=== PATIENT | female | born 1935 | race Caucasian/White ===

== ENCOUNTER 2018-01-31 01:42 | Inpatient (IN) | payer MEDICARE ==
[2018-01-31 03:13] LABS: #Lymphocytes 0.5 thou/uL (1.20-3.40); #Monocytes 0.4 thou/uL (0.11-0.59); #Neutrophils 4.2 thou/uL (1.40-6.50); %Basophils 0.6 % (0.0-1.0); %Eosinophils 0.4 % (0.0-10.0); %Lymphocytes 9.1 % (21.0-51.0); %Monocytes 7.1 % (0.0-10.0); %Neutrophils 82.8 % (42.0-75.0); Hemoglobin 11.2 g/dL (12.0-16.0); Mean Corpuscular HGB CONC 32.1 g/dL (32.0-36.0); Mean Corpuscular Hemoglobin 26.4 pg (27.0-31.0); Mean Corpuscular Volume 82.3 fl (81.0-99.0); Mean Platelet Volume 8.7 fL (7.4-10.4); Platelet Count 147 thou/uL (130-400); RBC Distribution Width 15.2 % (11.5-14.5); Red Blood Cell (RBC) Count 4.22 mill/uL (4.20-5.40)
[2018-01-31 03:37] LABS: CKMB 2.1 ng/mL (0-6.6); Troponin I 0.255 ng/mL (< 0.028)
[2018-01-31 03:46] LABS: ALT (SGPT) 26 U/L (8-55); AST (SGOT) 33 U/L (5-34); Albumin 3.3 g/dL (3.4-4.8); Alkaline Phosphatase 90 U/L (40-150); Anion Gap 12 mmol/L (10-20); BUN (Urea Nitrogen) 27 mg/dL (9.8-20.1); Bilirubin, Total 0.5 mg/dL (0.2-1.2); Calc. Creatinine Clearance 0 mL/min (70-130); Calcium 9.1 mg/dL (7.8-10.44); Carbon Dioxide 27 mmol/L (23-31); Chloride 105 mmol/L (98-107); Estimated GFR-MDRD 72; Glucose 180 mg/dL (83-110); Potassium 3.8 mmol/L (3.5-5.1); Protein, Total 6.3 g/dL (6.0-8.3); Sodium 140 mmol/L (136-145)
[2018-01-31] MEDS ORDERED: Aspirin 325 MG TAB ONE (04:24)
[2018-01-31] MEDS ORDERED: Piperacillin/Tazobactam 3.375 GM in Sodium Chloride 0.9% 100 ML IVPB SCH ×2 (04:30→06:45)
[2018-01-31 06:11] VITALS: BMI 19.3
[2018-01-31] MEDS ORDERED: Ondansetron ODT 4 MG TAB PO PRN (06:12)
[2018-01-31] MEDS ORDERED: Acetaminophen 325 MG TAB PO PRN (06:12)
[2018-01-31] MEDS ORDERED: Eucerin (Mineral Oil/Petrolatum,White) 30 gm Jar TOP PRN (06:12)
[2018-01-31] MEDS ORDERED: HYDROcodone/Acetaminophen 5/325 mg Tablet PO PRN (06:12)
[2018-01-31] MEDS ORDERED: Mag-Al 1200 mg/1200 mg/30 ML UDCUP PO PRN (06:12)
[2018-01-31] MEDS ORDERED: Artificial Tears 18 DROP/0.9 ML EA EYE PRN (06:12)
[2018-01-31] MEDS ORDERED: Ondansetron HCl/PF 4 MG/2 ML Vial IVP PRN (06:12)
[2018-01-31] MEDS ORDERED: Milk Of Magnesia 30 ML UDCUP PO PRN (06:12)
[2018-01-31] MEDS ORDERED: Zolpidem Tartrate 5 MG TAB PO PRN (06:12)
[2018-01-31] MEDS ORDERED: Loperamide HCl 2 MG CAP PO PRN (06:12)
[2018-01-31] MEDS ORDERED: HumaLOG 300 UNITS/3 ML VIAL SC PRN (06:12)
[2018-01-31] MEDS ORDERED: Senokot 8.6 MG TAB PO PRN (06:12)
[2018-01-31] MEDS ORDERED: hydrALAZINE 20 MG/ML VIAL SLOW IVP PRN (06:12)
[2018-01-31] MEDS ORDERED: Loratadine 10 MG TAB PO PRN (06:12)
[2018-01-31] MEDS ORDERED: Dextrose 5% in Water 1,000 ML IV PRN (06:12)
[2018-01-31] MEDS ORDERED: Sodium Chloride 0.65% Nasal 44 ML BOT EA NARE PRN (06:12)
[2018-01-31] MEDS ORDERED: Diabetic Tussin 200 MG/10 ML UDCUP PO PRN (06:12)
[2018-01-31] MEDS ORDERED: Chloraseptic Spray 180 ml Bottle PO PRN (06:12)
[2018-01-31] MEDS ORDERED: Furosemide 20 MG/2 ML VIAL SLOW IVP SCH (06:30)
--- NOTE | 2018-01-31 06:38 | HP ---
PRIMARY CARE PHYSICIAN: Dr. Anthony Moeller. REASON FOR ADMISSION: Acute hypoxic respiratory failure, pneumonia, congestive heart failure exacerb ation, demand ischemia of myocardium. HISTORY OF PRESENT ILLNESS: An 82-year-old female who lives at [facility]. She has history of con gestive heart failure. We do not have any medical record available in our hospital, so we do not kno w what type of congestive heart failure she has. At [facility], the patient has DNR order that was confirmed by ER physician after communicating with the nursing staff at [facility]. The patient was in respiratory distress. She was hypoxic and that is why paramedics were called. Pa ramedics saw her hypoxic. She required BiPAP. She was saturating only 85% on room air and she was i n respiratory distress. She was wheezing and she was having rales all over her lungs. The patient w as not able to provide any good history because she has underlying senile dementia and her cognitive status. Because of her age, she was not able to provide coherent history. REVIEW OF SYSTEMS: The patient is responding to yes or no question and mostly she says no to most of the questions, so reliability of review of system is uncertain. Please see my HPI for further detai ls. The following complete review of systems was negative, unless otherwise mentioned in the HPI or below: Constitutional: Weight loss or gain, ability to conduct usual activities. Skin: Rash, itch ing. Eyes: Double vision, pain. ENT/Mouth: Nose bleeding, neck stiffness, pain, tenderness. Card iovascular: Palpitations, dyspnea on exertion, orthopnea. Respiratory: Shortness of breath, wheezi ng, cough, hemoptysis, fever, or night sweats. Gastrointestinal: Poor appetite, abdominal pain, hea rtburn, nausea, vomiting, constipation, or diarrhea. Genitourinary: Urgency, frequency, dysuria, no cturia. Musculoskeletal: Pain, swelling. Neurologic/Psychiatric: Anxiety, depression. Allergy/Im munologic: Skin rash, bleeding tendency. Please see my HPI for pertinent positives and negatives. All other review of systems reviewed and negative except as mentioned in the HPI. Please see my HPI for further detail. ALLERGIES: No known drug allergy. CURRENT HOME MEDICATIONS: Unfortunately, snf did not send paperwork with the medication lis t and patient cannot provide the detail about her home medication, so unable to review, we will call in the morning snf and get medication list. CODE STATUS: As per our communication with nursing staff at [facility], it is confirmed that aung celis has DNR status at the sn[facility], but we do not have any official paperwork from snf an d that is why early in the morning, we will try to get paper work from snf about DNR status or I will try to reach family member to confirm her DNR status. PAST MEDICAL HISTORY: Chronic congestive heart failure, type of her congestive heart failure not kno wn; diabetes type 2, osteoarthritis, osteoporosis, compression fracture of vertebra, muscle wasting a nd atrophy oropharyngeal dysphagia, history of pneumonia. PAST SURGICAL HISTORY: The patient is not able to provide any detailed surgical history unfortunatel y because of her cognitive status. PAST PSYCHIATRIC HISTORY: Similarly, patient is not able to provide any detailed psychiatric history because of her cognitive status. FAMILY HISTORY: The patient is not able to provide any family history because of her current cogniti ve status. SOCIAL HISTORY: Only we know is that the patient lives at snf and as per report, no history of tobacco, alcohol or illicit drug abuse at the snf. EMERGENCY ROOM COURSE: Patient is given vancomycin, Zosyn, aspirin and DuoNeb therapy. The patient initially required BiPAP in the emergency room, but subsequently BiPAP was discontinued a nd still patient was maintaining saturation above 92% with oxygen. PHYSICAL EXAMINATION: VITAL SIGNS: Currently, blood pressure 174/84, pulse 86, respiratory rate 20, temperature 98.5, satu ration 97% on BiPAP, and 94% on 3 liter oxygen, weight 49.9 kilograms. GENERAL: The patient is currently in mild respiratory distress. HEENT: Head is normocephalic, atraumatic. Eyes: Pupils round, reactive to light. Extraocular musc les are intact. ENT: Moist mucous membranes. No oral lesion, no pharyngeal erythema, no exudate. NECK: Supple, no JVD, no thyromegaly, no carotid bruit, no jugular venous distention. LUNGS: Bilateral rales noted, more on the right side. Bronchial breath sounds noted on the right si de and expiratory wheezing bilaterally. CARDIAC: S1, S2 regular. Soft systolic murmur noted parasternally and no gallop, no rub. ABDOMEN: Soft, bowel sounds present, nontender, nondistended. No organomegaly, no mass, no suprapub ic tenderness. BACK: Unremarkable, no CVA tenderness. EXTREMITIES: Upper extremity, passive movement of all joints is normal. Lower extremity: No edema. Good peripheral pulsation. SKIN: Patient does have multiple age-indeterminant scattered bruises all over her skin. PSYCHIATRIC: Normal affect. NEUROLOGIC: Grossly nonfocal examination. The patient moves all 4 limbs. Motor and sensation withi n normal limit. SIGNIFICANT LABS: 1. EKG showing normal sinus rhythm, left axis deviation, LVH, left atrial enlargement. Chest x-ray showing right lower lobe pneumonia, pulmonary vascular congestion. 2. CBC: WBC 5.0, hemoglobin 11.2, platelets 147 with a left shift. BMP shows sodium 140, potassium 3.8, chloride 105, carbon dioxide 27, anion gap 12, BUN 27, creatinine 0.77, glucose 180, calcium 9. 1. Lactic acid 1.1. 3. LFT: AST 33, ALT 26, alkaline phosphatase 90, albumin 3.3. BNP 894.1, CK-MB 2.1, troponin 0.255 . ASSESSMENT AND PLAN: 1. Acute hypoxic respiratory failure likely due to congestive heart failure as well as healthcare-as sociated pneumonia. The patient will need oxygen therapy and we will maintain oxygen saturation abov e 92%. 2. FPC acquired pneumonia. Patient has right lower lobe pneumonia, underlying aspiration p neumonia is also a possibility. The patient will be given broad spectrum antibiotic therapy with van comycin and Zosyn to cover gram positive, gram negative and anaerobes. We will also consult speech t herapy for her swallowing evaluation. The patient will be given DuoNeb therapy every 6 hourly as wel l as Mucinex 600 mg twice daily. 3. Demand ischemia of myocardium. We will do serial cardiac enzymes x3 to rule out acute coronary s yndrome. 4. Acute on chronic congestive heart failure exacerbation, suspecting diastolic heart failure. We w ill obtain echocardiography. We will give her Lasix 20 mg IV b.i.d. We will monitor renal function, electrolytes and replace accordingly. 5. Anemia, normocytic, normochromic. Patient will be given multivitamin and ferrous sulfate while i n hospital. 6. Moderate protein-calorie malnutrition. The patient will be given nutritional supplementation whi le in hospital. 7. Senile dementia, Alzheimer's type. Patient will need supportive care. Patient will need PT, OT while in hospital and eventually the patient will go back to sn[facility]. 8. Deep venous thrombosis prophylaxis. Lovenox 40 mg subcu daily. 9. Gastrointestinal prophylaxis, Pepcid 20 mg p.o. b.i.d. 10. Code status as per report, the patient has DNR status, but we will confirm patient's DNR status in the morning with the family or paperwork from snf. 11. Diabetes type 2. We will continue hyperglycemia protocol treatment while in hospital with insul in as per sliding scale protocol. 12. Oropharyngeal dysphagia. We will consult speech therapy for diet modification. Disposition plan based on clinical course. We are expecting patient's stay in hospital more than 2 m idnights. Plan of care discussed with the patient in detail.
[2018-01-31 07:03] LABS: Troponin I 0.266 ng/mL (< 0.028)
[2018-01-31] MEDS: Vancomycin HCl 750 MG in Sodium Chloride 0.9% 250 ML 250 ML IVPB SCH (08:24)
[2018-01-31] MEDS: Famotidine 20 MG TAB PO SCH (08:25)
[2018-01-31] MEDS: Enoxaparin Sodium 40 MG/0.4 ML SYRINGE SC SCH (08:25)
[2018-01-31] MEDS: guaiFENesin ER 600 MG TAB PO SCH ×2 (08:26→22:17)
[2018-01-31] MEDS: Saccharomyces boulardii 250 MG CAP PO SCH (08:26)
--- NOTE | 2018-01-31 08:54 | RAD ---
TWO VIEWS CHEST: HISTORY: Shortness of breath, 82-year-old female. FINDINGS: Two AP views chest are obtained. EKG leads are seen over the chest. Ectasia and calcification of the aorta is seen. Diffuse interstitial markings seen throughout the lungs. Areas of airspace opacity are seen throughout both lungs, more prominent on the right than on the lef t compatible with chronic changes versus areas of patchy pneumonia. Correlate with followup films. IMPRESSION: Bilateral airspace opacities, worse on the right than on the left, concerning for bilateral pneumonia or possible chronic changes. POS: [facility]
[2018-01-31 09:50] LABS: Troponin I 0.265 ng/mL (< 0.028)
--- NOTE | 2018-01-31 11:10 | PDOC.EVN ---
Event Note - Event Note Event Note: Patient seen and examined, remains in atrial fibrillation however HR < 115, will hold amiodarone for now and request nurse to contact cardiology for further recommendations regarding amio. No family at bedside, prognosis guarded- poor. Patient is disoriented and frail appearing.
[2018-01-31] MEDS: Piperacillin/Tazobactam 3.375 GM in Sodium Chloride 0.9% 100 ML IVPB SCH ×3 (12:46→23:56)
[2018-01-31] MEDS: HumaLOG 300 UNITS/3 ML VIAL SC PRN ×2 (12:52→17:16)
--- NOTE | 2018-01-31 14:30 | CON ---
DATE OF CONSULTATION: 01/31/2018 CARDIOLOGY CONSULTATION REASON FOR CONSULTATION: Heart failure. HISTORY OF PRESENT ILLNESS: Ms. Mace is a pleasant 82-year-old white female who comes to the hospital for shortness of breath and hypoxia. She lives [facility] a local [facility]. She has underlying dementi a and is unable to provide accurate history, although she is conversant. She was transferred over by EMS secondary to hypoxia. Her saturations were 85% on room air and she was in respiratory distress, wheezing. She was brought in and found to be in a bit of heart failure and chest x-ray suggestive o f possible pneumonia, so she was started on antibiotics and Lasix. Cardiology is being consulted for evaluation of the heart failure. As far as we can tell, she has never seen a strategic business development. She tel ls me she has never had a heart problem in the past. Currently, she denies any chest pain, tightness , pressure, no shortness of breath. PAST MEDICAL HISTORY: 1. History of heart failure, diastolic most likely. 2. Type 2 diabetes. 3. Osteoarthritis. 4. Osteoporosis. 5. Vertebral compression fractures. 6. Muscle wasting and atrophy. 7. Oropharyngeal dysphagia. 8. Pneumonias in the past. 9. Dementia. PAST SURGICAL HISTORY: Unknown at this time, she is unable to provide. FAMILY HISTORY: Unable to provide. SOCIAL HISTORY: Patient is unable to provide, but no alcohol, tobacco, or drugs at detention. REVIEW OF SYSTEMS: A 12-point review of systems was done and is all negative unless stated in the his tory of present illness; however, this is not accurate given the patient's inability to respond accur ately. PHYSICAL EXAMINATION: VITAL SIGNS: Temperature 97.5, pulse 65, respiratory rate 18, satting 94% on 2 liters, blood pressur e 153/72. GENERAL: Awake and alert. She is oriented to person only, in no distress. HEENT: Normocephalic, atraumatic. NECK: Supple. LUNGS: Have coarse breath sounds bilaterally at the bases. CARDIOVASCULAR: S1 and S2. There is a grade 3/6 systolic murmur at right upper sternal border. Dif ficult to hear. ABDOMEN: Soft, positive bowel sounds. EXTREMITIES: No edema. SKIN: Warm and dry. LABORATORY DATA AND IMAGING DATA: Laboratory work was reviewed. Sodium 140, potassium is 3.8. GFR is normal at 72, glucose of 180, lactic acid is 1.1, total bilirubin 0.5. AST, ALT, and alkaline naye sphatase are all normal. Troponin was in the indeterminate range at 0.25, 0.26, 0.26. BNP was 894, albumin of 3.4. White count 5, hemoglobin 11, hematocrit of 34 and platelet count of 147. Echocardiogram was reviewed. She has an EF of 55%-60% with grade I/III diastolic dysfunction, eviden ce of right-sided pressure overload and mild AI. There is a small pleural effusion, cannot exclude a n extracardiac mass, but looking at the chest x-ray she has scoliosis and most likely this is the dif ference in shape that we were seen. Chest x-ray shows findings consistent with CHF and possible pneumonia. ASSESSMENT AND PLAN: 1. Acute on chronic diastolic heart failure. 2. Possible pneumonia. 3. Dementia. 4. Type 2 diabetes. 5. Hypertension. 6. Possible extracardiac mass. May be related to her scoliosis. PLAN: 1. Agree with continued diuresis for now. We will hold off on any CTs at that time. We will try to make sure her lungs are clear. If looking for mass, heart failure may obscure this and may not be a n accurate thing to do at this time. 2. Continue IV diuresis for now. Thank you for letting us to participate in the care of you patient. We will follow.
[2018-01-31] MEDS: Furosemide 20 MG/2 ML VIAL SLOW IVP SCH (15:03)
[2018-01-31 18:43] LABS: Bilirubin Negative (Negative); Blood, Urine Negative (Negative); Clarity CLOUDY (Clear); Glucose, Urine (Dipstick) 100 mg/dL (Negative); Leukocyte Negative (Negative); Nitrite Negative (Negative); Protein, Urine (Dipstick) Negative (Neg-Trace); Specific Gravity, Urine 1.013 (1.002-1.036); Urobilinogen 0.2 mg/dL (0.2-1.0)
[2018-01-31 18:46] LABS: Bacteria/HPF None Seen HPF (None Seen); Hyaline Casts/LPF 0-3 HYALINE CAST LPF (0-3 Hyaline); Pathc Cast-AUWi Flag 0.72 (0-2.49); Squamous Epithelial 0-3 HPF (0-3); WBC/HPF None Seen HPF (0-3)
[2018-02-01 05:18] LABS: #Basophils 0.1 thou/uL (0.0-0.2); #Eosinphils 0.1 thou/uL (0.0-0.7); #Lymphocytes 0.8 thou/uL (1.20-3.40); #Monocytes 0.4 thou/uL (0.11-0.59); #Neutrophils 3.5 thou/uL (1.40-6.50); %Basophils 2.8 % (0.0-1.0); %Eosinophils 1.9 % (0.0-10.0); %Lymphocytes 16.5 % (21.0-51.0); %Monocytes 8.1 % (0.0-10.0); %Neutrophils 70.7 % (42.0-75.0); Hemoglobin 9.6 g/dL (12.0-16.0); Mean Corpuscular HGB CONC 32.4 g/dL (32.0-36.0); Mean Corpuscular Hemoglobin 26.6 pg (27.0-31.0); Mean Corpuscular Volume 82.2 fl (81.0-99.0); Mean Platelet Volume 8.5 fL (7.4-10.4); Platelet Count 165 thou/uL (130-400); RBC Distribution Width 14.9 % (11.5-14.5); Red Blood Cell (RBC) Count 3.62 mill/uL (4.20-5.40)
[2018-02-01 05:52] LABS: ALT (SGPT) 23 U/L (8-55); AST (SGOT) 23 U/L (5-34); Alkaline Phosphatase 80 U/L (40-150); Anion Gap 10 mmol/L (10-20); BUN (Urea Nitrogen) 27 mg/dL (9.8-20.1); Bilirubin, Total 0.5 mg/dL (0.2-1.2); Calc. Creatinine Clearance 42 mL/min (70-130); Calcium 8.9 mg/dL (7.8-10.44); Carbon Dioxide 30 mmol/L (23-31); Chloride 103 mmol/L (98-107); Estimated GFR-MDRD 68; Globulin 2.8 g/dL (2.4-3.5); Glucose 165 mg/dL (83-110); Potassium 3.4 mmol/L (3.5-5.1); Protein, Total 5.8 g/dL (6.0-8.3); Sodium 140 mmol/L (136-145)
[2018-02-01] MEDS: Piperacillin/Tazobactam 3.375 GM in Sodium Chloride 0.9% 100 ML IVPB SCH ×4 (06:41→23:15)
[2018-02-01] MEDS: Furosemide 20 MG/2 ML VIAL SLOW IVP SCH ×2 (06:42→13:28)
[2018-02-01] MEDS: guaiFENesin ER 600 MG TAB PO SCH ×2 (09:38→21:35)
[2018-02-01] MEDS: Famotidine 20 MG TAB PO SCH (09:39)
[2018-02-01] MEDS: Enoxaparin Sodium 40 MG/0.4 ML SYRINGE SC SCH (09:39)
[2018-02-01] MEDS: Vancomycin HCl 750 MG in Sodium Chloride 0.9% 250 ML 250 ML IVPB SCH (09:39)
[2018-02-01] MEDS: Saccharomyces boulardii 250 MG CAP PO SCH (09:39)
[2018-02-01] MEDS: HumaLOG 300 UNITS/3 ML VIAL SC PRN ×2 (09:54→13:25)
--- NOTE | 2018-02-01 13:29 | PDOC.CTH ---
Cardiology Progress Note - Subjective No new complaints. - Objective Vital Signs Temp Pulse Resp BP BP Pulse Ox 02/01/18 11:55 76 16 100 02/01/18 10:50 97.4 F L 83 19 192/81 H 97 02/01/18 10:10 192/81 H 02/01/18 08:29 69 18 99 02/01/18 07:32 97.3 F L 66 20 172/72 H 88 L 02/01/18 05:00 97.3 F L 78 20 175/78 H 93 L Weight 115 lb 8 oz 01/31/18 02/01/18 02/02/18 06:59 06:59 06:59 Intake Total 1708 Balance 1708 - Physical Examination General/Neuro: NAD Neck: no JVD present Lungs: unlabored respirations, other: (coarse biat) Heart: RRR Abdomen: NT/ND Extremities: other: (no edema.) - Telemetry Telemetry Rhythm: NSR, NS SVT - Labs Result Diagrams: 02/01/18 04:43 02/01/18 04:43 Troponin/CKMB CK-MB (CK-2) 2.1 ng/mL (0-6.6) 01/31/18 02:59 Troponin I 0.265 ng/mL (< 0.028) H 01/31/18 08:57 - Assessment/Plan 1. Non sustained SVT 2. Acute on chronic diastolic heart failure 3. Possible pneumonia 4. Dementia 5. HTN PLAN: - Continue IV diuresis today then switch to PO tomorrow. - Replace K - Low dose BB for her non sustained SVT - Will restart home meds for better BP control.
--- NOTE | 2018-02-01 13:34 | PDOC.PN ---
- Subjective Encounter Start Date: 02/01/18 Encounter Start Time: 10:40 Subjective: no sob, is trying to eat her breakfast -: not fully oriented, responds to verbal questions - Objective MAR Reviewed: Yes Vital Signs & Weight: Vital Signs (12 hours) Temp Pulse Resp BP BP Pulse Ox 02/01/18 11:55 76 16 100 02/01/18 10:50 97.4 F L 83 19 192/81 H 97 02/01/18 10:10 192/81 H 02/01/18 08:29 69 18 99 02/01/18 07:32 97.3 F L 66 20 172/72 H 88 L 02/01/18 05:00 97.3 F L 78 20 175/78 H 93 L Weight Weight 115 lb 8 oz I&O: 01/31/18 02/01/18 02/02/18 06:59 06:59 06:59 Intake Total 1708 Balance 1708 Result Diagrams: 02/01/18 04:43 02/01/18 04:43 Additional Labs: Accuchecks 02/01/18 02/01/18 01/31/18 12:01 06:04 20:37 POC Glucose 352 H 197 H 287 H 01/31/18 17:03 POC Glucose 349 H Phys Exam - Physical Examination HEENT: PERRLA, sclera anicteric Neck: no JVD, supple Respiratory: no wheezing rales++, rhonchi+ Cardiovascular: RRR, no significant murmur Gastrointestinal: soft, no distention, positive bowel sounds Musculoskeletal: no edema, pulses present Neurological: non-focal, moves all 4 limbs Dx/Plan (1) Acute exacerbation of CHF (congestive heart failure) Code(s): I50.9 - HEART FAILURE, UNSPECIFIED Status: Acute Qualifiers: Heart failure type: diastolic Qualified Code(s): I50.33 - Acute on chronic diastolic (congestive) heart failure Comment: ef of 55%, diastolic dysfunction (2) Demand ischemia of myocardium Code(s): I24.8 - OTHER FORMS OF ACUTE ISCHEMIC HEART DISEASE Status: Acute (3) PNA (pneumonia) Code(s): J18.9 - PNEUMONIA, UNSPECIFIED ORGANISM Status: Acute Qualifiers: Pneumonia type: due to unspecified organism Laterality: bilateral Lung location: lower lobe of lung Qualified Code(s): J18.1 - Lobar pneumonia, unspecified organism (4) DM type 2 (diabetes mellitus, type 2) Status: Chronic Qualifiers: Diabetes mellitus intermediate insulin use: with wrecking supervisor use Diabetes mellitus complication status: with unspecified complications Qualified Code(s) : E11.8 - Type 2 diabetes mellitus with unspecified complications; Z79.4 - nursing home (current) use of insulin; Z79.4 - analytical strategist (current) use of insulin; Z79.4 - analytical strategist (current) use of insulin; Z79.4 - analytical strategist (current) use of insulin (5) Anemia Code(s): D64.9 - ANEMIA, UNSPECIFIED Status: Chronic Qualifiers: Anemia type: unspecified type Qualified Code(s): D64.9 - Anemia, unspecified (6) Moderate protein-calorie malnutrition Code(s): E44.0 - MODERATE PROTEIN-CALORIE MALNUTRITION Status: Chronic (7) Dementia Code(s): F03.90 - UNSPECIFIED DEMENTIA WITHOUT BEHAVIORAL DISTURBANCE Status: Chronic Qualifiers: Dementia type: unspecified type Dementia behavioral disturbance: without behavioral disturbance Qualified Code(s): F03.90 - Unspecified dementia without behavioral disturbance - Plan is on lasix 20mg q12h -: vanc and zosyn for pna -: nebs -: dm is uncontrolled, will increase insulin -: PT to mobilize as tolerated, palliative care consult * . Review of Systems - Medications/Allergies Allergies/Adverse Reactions: Allergies Allergy/AdvReac Type Severity Reaction Status Date / Time No Known Drug Allergies Allergy Verified 01/31/18 04:21 Medications: Current Medications Acetaminophen (Tylenol) 650 mg PO Q4H PRN PRN Reason: Headache/Fever or Pain Hydrocodone Bitart/Acetaminophen (Webster 5/325) 1 tab PO Q4H PRN PRN Reason: Moderate Pain (4-6) Al Hydroxide/Mg Hydroxide (Maalox) 30 ml PO Q6H PRN PRN Reason: Heartburn or Indigestion Albuterol/Ipratropium (Duoneb) 3 ml NEB [id number] [facility] Last Admin: 02/01/18 11:55 Dose: 3 ml Artificial Tears (Tears Naturale) 0 drop EA EYE PRN PRN PRN Reason: Dry Eyes Aspirin (Aspirin Chewable) 81 mg PO DAILY [facility] Last Admin: 02/01/18 09:39 Dose: 81 mg Dextrose/Water (Dextrose 50%) 25 gm SLOW IVP PRN PRN PRN Reason: Hypoglycemia Enoxaparin Sodium (Lovenox) 40 mg SC 0900 [facility] Last Admin: 02/01/18 09:39 Dose: 40 mg Famotidine (Pepcid) 20 mg PO DAILY [facility] Last Admin: 02/01/18 09:39 Dose: 20 mg Furosemide (Lasix) 20 mg SLOW IVP 0600,1400 [facility] Last Admin: 02/01/18 13:28 Dose: 20 mg Glucagon (Glucagon) 1 mg IM PRN PRN PRN Reason: Hypoglycemia Guaifenesin (Robitussin Sf) 200 mg PO Q4H PRN PRN Reason: Cough Guaifenesin (Mucinex) 600 mg PO Q12HR [facility] Last Admin: 02/01/18 09:38 Dose: 600 mg Hydralazine HCl (Apresoline) 10 mg SLOW IVP Q4H PRN PRN Reason: Systolic BP > 180 Dextrose/Water (D5w) 1,000 mls @ 0 mls/hr IV .Q0M PRN; As Directed PRN Reason: Hypoglycemia Piperacillin Sod/Tazobactam (Sod 3.375 gm/ Sodium Chloride) 100 mls @ 200 mls/ hr IVPB Q6HR [facility] Last Admin: 02/01/18 13:25 Dose: 100 mls Vancomycin HCl 750 mg/ Sodium (Chloride) 250 mls @ 250 mls/hr IVPB 0800 [facility] Last Admin: 02/01/18 09:39 Dose: 250 mls Insulin Human Lispro (Humalog) 0 units SC .MODERATE SLIDING SC PRN PRN Reason: Moderate Correctional Scale Last Admin: 02/01/18 13:25 Dose: 10 unit Insulin Human Lispro (Humalog) 0 units SC .BEDTIME SLIDING SC PRN PRN Reason: Bedtime Correctional Scale Last Admin: 01/31/18 22:17 Dose: 3 unit Lisinopril (Zestril) 5 mg PO DAILY [facility] Loperamide HCl (Imodium) 2 mg PO PRN PRN PRN Reason: Diarrhea/Loose Stools Loratadine (Claritin) 10 mg PO DAILYPRN PRN PRN Reason: Sinus Symptoms Magnesium Hydroxide (Milk Of Magnesium) 30 ml PO DAILYPRN PRN PRN Reason: Constipation Metoprolol Tartrate (Lopressor) 12.5 mg PO BID [facility] Mineral Oil/White Petrolatum (Eucerin Cream) 0 gm TOP BIDPRN PRN PRN Reason: Dry Skin Miscellaneous Medication (Pharmacy To Dose) 1 each IVPB ONE PRN PRN Reason: Pharmacy to dose Stop: 02/10/18 06:13 Ondansetron HCl (Zofran Odt) 4 mg PO Q6H PRN PRN Reason: Nausea/Vomiting Ondansetron HCl (Zofran) 4 mg IVP Q6H PRN PRN Reason: Nausea/Vomiting Phenol (Chloraseptic Hannibal 180 Ml Bot) 0 ml PO PRN PRN PRN Reason: Sore Throat Saccharomyces Boulardii (Florastor) 250 mg PO DAILY [facility] Last Admin: 02/01/18 09:39 Dose: 250 mg Senna (Senokot) 2 tab PO HSPRN PRN PRN Reason: Constipation Sodium Chloride ([place]ie Nasal Hannibal 0.65%) 0 ml EA NARE QIDPRN PRN PRN Reason: Nasal Congestion Zolpidem Tartrate (Ambien) 5 mg PO HSPRN PRN PRN Reason: Insomnia Last Admin: 02/01/18 00:53 Dose: 5 mg
[2018-02-01] MEDS ORDERED: Insulin Detemir 100 UNITS/ML 10 UNITS in Pre-Filled Syringe 1 EACH SC SCH (21:00)
[2018-02-01] MEDS: Metoprolol Tartrate 25 MG TAB PO SCH (21:36)
[2018-02-02] MEDS: Dextrose 50% Abboject 50 ML SYRINGE SLOW IVP PRN ×2 (05:28→06:38)
[2018-02-02] MEDS ORDERED: Dextrose 50% Abboject 50 ML SYRINGE ONE (06:36)
[2018-02-02] MEDS: Piperacillin/Tazobactam 3.375 GM in Sodium Chloride 0.9% 100 ML IVPB SCH ×2 (06:42→15:10)
[2018-02-02] MEDS: Furosemide 20 MG/2 ML VIAL SLOW IVP SCH (06:42)
[2018-02-02 07:13] LABS: Vancomycin, Trough 5.4 ug/mL
[2018-02-02 07:53] LABS: #Eosinphils 0.1 thou/uL (0.0-0.7); #Lymphocytes 0.6 thou/uL (1.20-3.40); #Monocytes 0.4 thou/uL (0.11-0.59); #Neutrophils 3.5 thou/uL (1.40-6.50); %Eosinophils 2.9 % (0.0-10.0); %Lymphocytes 13.6 % (21.0-51.0); %Monocytes 8.4 % (0.0-10.0); %Neutrophils 75.1 % (42.0-75.0); Hemoglobin 10.6 g/dL (12.0-16.0); Mean Corpuscular HGB CONC 33.2 g/dL (32.0-36.0); Mean Corpuscular Hemoglobin 28.1 pg (27.0-31.0); Mean Corpuscular Volume 84.6 fl (81.0-99.0); Mean Platelet Volume 8.7 fL (7.4-10.4); Platelet Count 175 thou/uL (130-400); RBC Distribution Width 14.9 % (11.5-14.5); Red Blood Cell (RBC) Count 3.77 mill/uL (4.20-5.40); White Blood Cell (WBC) Count 4.7 thou/uL (4.8-10.8)
[2018-02-02 07:57] LABS: Prothrombin Time 13.6 SEC (12.0-14.7)
[2018-02-02 07:58] LABS: PTT 33.6 SEC (22.9-36.1)
[2018-02-02 08:06] LABS: ALT (SGPT) 18 U/L (8-55); AST (SGOT) 20 U/L (5-34); Albumin 3.1 g/dL (3.4-4.8); Alkaline Phosphatase 76 U/L (40-150); Anion Gap 12 mmol/L (10-20); BUN (Urea Nitrogen) 15 mg/dL (9.8-20.1); Bilirubin, Total 0.6 mg/dL (0.2-1.2); Calc. Creatinine Clearance 42 mL/min (70-130); Carbon Dioxide 31 mmol/L (23-31); Chloride 98 mmol/L (98-107); Estimated GFR-MDRD 72; Globulin 3.1 g/dL (2.4-3.5); Glucose 142 mg/dL (83-110); Potassium 3.2 mmol/L (3.5-5.1); Protein, Total 6.2 g/dL (6.0-8.3); Sodium 138 mmol/L (136-145)
[2018-02-02 08:10] LABS: CKMB 1.4 ng/mL (0-6.6); Troponin I 0.065 ng/mL (< 0.028)
[2018-02-02] MEDS ORDERED: HumaLOG 300 UNITS/3 ML VIAL SC PRN (08:35)
[2018-02-02] MEDS ORDERED: Vancomycin HCl 750 MG in Sodium Chloride 0.9% 250 ML 250 ML IVPB SCH (09:00)
[2018-02-02] MEDS ORDERED: Insulin Detemir 100 UNITS/ML 10 UNITS in Pre-Filled Syringe 1 EACH SC SCH (09:00)
[2018-02-02] MEDS ORDERED: Lisinopril 5 MG TAB PO SCH (09:00)
[2018-02-02] MEDS: Saccharomyces boulardii 250 MG CAP PO SCH (09:30)
[2018-02-02] MEDS: Metoprolol Tartrate 25 MG TAB PO SCH ×2 (09:30→21:56)
--- NOTE | 2018-02-02 09:43 | CT ---
BRAIN CT WITHOUT IV CONTRAST: History: 82-year-old female with history of unresponsiveness, stroke alert. FINDINGS: There is some motion artifact. There is atrophy and chronic white matter ischemic change noted bilate rally. No focal mass or midline shift. No intra or extraaxial hemorrhage. There are sinus mucosal janusz nges and sinus fluid in the sphenoid sinuses. Mastoids are clear. IMPRESSION: Atrophy and chronic white matter ischemic change. No mass or bleed intracranially. Sinus mucosal dise ase with some fluid in the sphenoid sinuses. This report was given to the Charge Nurse who was in the CT scanner at the time the patient was being scanned at 8:05 a.m. Code CR POS: [facility]
[2018-02-02] MEDS: Dextrose 5 % And 0.9 % NaCl 1,000 ML IV SCH (10:27)
[2018-02-02] MEDS: Enoxaparin Sodium 40 MG/0.4 ML SYRINGE SC SCH (10:28)
[2018-02-02] MEDS: guaiFENesin ER 600 MG TAB PO SCH ×2 (12:18→21:57)
[2018-02-02] MEDS: Famotidine 20 MG TAB PO SCH (12:18)
--- NOTE | 2018-02-02 13:20 | PDOC.PN ---
- Subjective Encounter Start Date: 02/02/18 Encounter Start Time: 08:45 Subjective: awakens to touch but doesn't communicate much -: not oriented, maintaining airway - Objective Resuscitation Status: Resuscitation Status DNR:Do Not Resuscitate MAR Reviewed: Yes Vital Signs & Weight: Vital Signs (12 hours) Temp Pulse Pulse Pulse Resp Resp Resp 02/02/18 12:19 56 L 02/02/18 07:52 56 L 14 02/02/18 07:51 02/02/18 07:33 57 L 57 L 16 16 02/02/18 04:00 98.5 F 66 18 BP BP BP Pulse Ox Pulse Ox Pulse Ox 02/02/18 12:19 02/02/18 07:52 99 02/02/18 07:51 99 02/02/18 07:33 178/81 H 158/71 H 98 96 02/02/18 04:00 172/82 H 90 L Weight Weight 105 lb I&O: 02/01/18 02/02/18 02/03/18 06:59 06:59 06:59 Intake Total 1708 240 Balance 1708 240 Result Diagrams: 02/02/18 07:40 02/02/18 07:40 Additional Labs: Accuchecks 02/02/18 02/02/18 02/02/18 12:31 10:04 07:38 POC Glucose 104 115 H 166 H 02/02/18 02/02/18 02/02/18 07:22 06:32 06:08 POC Glucose 173 H 83 125 H 02/02/18 02/02/18 02/01/18 05:37 05:24 23:12 POC Glucose 203 H Less than 35 L* 273 H 02/01/18 02/01/18 02/01/18 21:05 17:53 17:21 POC Glucose 245 H 149 H 64 L 02/01/18 17:04 POC Glucose 55 L* Phys Exam - Physical Examination HEENT: PERRLA, sclera anicteric dry mucosa Neck: no JVD, supple Respiratory: no wheezing, no rales Cardiovascular: RRR, no significant murmur Gastrointestinal: soft, non-tender, positive bowel sounds Musculoskeletal: no edema, pulses present Neurological: non-focal Dx/Plan (1) Acute exacerbation of CHF (congestive heart failure) Code(s): I50.9 - HEART FAILURE, UNSPECIFIED Status: Acute Qualifiers: Heart failure type: diastolic Qualified Code(s): I50.33 - Acute on chronic diastolic (congestive) heart failure Comment: ef of 55%, diastolic dysfunction (2) Demand ischemia of myocardium Code(s): I24.8 - OTHER FORMS OF ACUTE ISCHEMIC HEART DISEASE Status: Acute (3) PNA (pneumonia) Code(s): J18.9 - PNEUMONIA, UNSPECIFIED ORGANISM Status: Acute Qualifiers: Pneumonia type: due to unspecified organism Laterality: bilateral Lung location: lower lobe of lung Qualified Code(s): J18.1 - Lobar pneumonia, unspecified organism (4) DM type 2 (diabetes mellitus, type 2) Status: Chronic Qualifiers: Diabetes mellitus roasterman insulin use: with roasterman use Diabetes mellitus complication status: with unspecified complications Qualified Code(s) : E11.8 - Type 2 diabetes mellitus with unspecified complications; Z79.4 - longterm (current) use of insulin; Z79.4 - longterm (current) use of insulin; Z79.4 - oysterman (current) use of insulin; Z79.4 - longterm (current) use of insulin (5) Anemia Code(s): D64.9 - ANEMIA, UNSPECIFIED Status: Chronic Qualifiers: Anemia type: unspecified type Qualified Code(s): D64.9 - Anemia, unspecified (6) Moderate protein-calorie malnutrition Code(s): E44.0 - MODERATE PROTEIN-CALORIE MALNUTRITION Status: Chronic (7) Dementia Code(s): F03.90 - UNSPECIFIED DEMENTIA WITHOUT BEHAVIORAL DISTURBANCE Status: Chronic Qualifiers: Dementia type: unspecified type Dementia behavioral disturbance: without behavioral disturbance Qualified Code(s): F03.90 - Unspecified dementia without behavioral disturbance - Plan had code green for ac encephalopathy with low poc glucose -: still has not recovered from it, CT brain -ve for ac changes -: d/w daughter in law over phone, if pt doesn't recover by 2pm prognosis is g -: -jason, family is aware, hold diuretics for now -: d5ns @40mls/hr, vanc and zosyn for asp pna * . Review of Systems - Medications/Allergies Allergies/Adverse Reactions: Allergies Allergy/AdvReac Type Severity Reaction Status Date / Time No Known Drug Allergies Allergy Verified 01/31/18 04:21 Medications: Current Medications Acetaminophen (Tylenol) 650 mg PO Q4H PRN PRN Reason: Headache/Fever or Pain Hydrocodone Bitart/Acetaminophen ([place] 5/325) 1 tab PO Q4H PRN PRN Reason: Moderate Pain (4-6) Al Hydroxide/Mg Hydroxide (Maalox) 30 ml PO Q6H PRN PRN Reason: Heartburn or Indigestion Albuterol/Ipratropium (Duoneb) 3 ml NEB [id number] [facility] Last Admin: 02/02/18 07:52 Dose: 3 ml Artificial Tears (Tears Naturale) 0 drop EA EYE PRN PRN PRN Reason: Dry Eyes Aspirin (Aspirin Chewable) 81 mg PO DAILY [facility] Last Admin: 02/02/18 12:18 Dose: Not Given Dextrose/Water (Dextrose 50%) 25 gm SLOW IVP PRN PRN PRN Reason: Hypoglycemia Last Admin: 02/02/18 06:38 Dose: 25 gm Enoxaparin Sodium (Lovenox) 40 mg SC 0900 [facility] Last Admin: 02/02/18 10:28 Dose: 40 mg Famotidine (Pepcid) 20 mg PO DAILY [facility] Last Admin: 02/02/18 12:18 Dose: Not Given Furosemide (Lasix) 20 mg SLOW IVP 0600,1400 [facility] Last Admin: 02/02/18 06:42 Dose: 20 mg Glucagon (Glucagon) 1 mg IM PRN PRN PRN Reason: Hypoglycemia Guaifenesin (Robitussin Sf) 200 mg PO Q4H PRN PRN Reason: Cough Guaifenesin (Mucinex) 600 mg PO Q12HR [facility] Last Admin: 02/02/18 12:18 Dose: Not Given Hydralazine HCl (Apresoline) 10 mg SLOW IVP Q4H PRN PRN Reason: Systolic BP > 180 Dextrose/Water (D5w) 1,000 mls @ 0 mls/hr IV .Q0M PRN; As Directed PRN Reason: Hypoglycemia Piperacillin Sod/Tazobactam (Sod 3.375 gm/ Sodium Chloride) 100 mls @ 200 mls/ hr IVPB Q6HR [facility] Last Admin: 02/02/18 06:42 Dose: 100 mls Insulin Detemir 5 units/ (Miscellaneous Medication) 0.05 mls @ 0 mls/hr SC QPM [facility] Vancomycin HCl 750 mg/ Sodium (Chloride) 250 mls @ 250 mls/hr IVPB Q12HR [facility] Dextrose/Sodium Chloride (D5 0.9% Ns) 1,000 mls @ 40 mls/hr IV .Q24H [facility] Last Admin: 02/02/18 10:27 Dose: 1,000 mls Insulin Human Lispro (Humalog) 0 units SC .BEDTIME SLIDING SC PRN PRN Reason: Bedtime Correctional Scale Last Admin: 01/31/18 22:17 Dose: 3 unit Insulin Human Lispro (Humalog) 0 units SC .MILD SLIDING SCALE PRN; Protocol PRN Reason: MILD SLIDING SCALE Lisinopril (Zestril) 5 mg PO DAILY [facility] Last Admin: 02/02/18 12:19 Dose: Not Given Loperamide HCl (Imodium) 2 mg PO PRN PRN PRN Reason: Diarrhea/Loose Stools Loratadine (Claritin) 10 mg PO DAILYPRN PRN PRN Reason: Sinus Symptoms Magnesium Hydroxide (Milk Of Magnesium) 30 ml PO DAILYPRN PRN PRN Reason: Constipation Metoprolol Tartrate (Lopressor) 12.5 mg PO BID [facility] Last Admin: 02/01/18 21:36 Dose: 12.5 mg Mineral Oil/White Petrolatum (Eucerin Cream) 0 gm TOP BIDPRN PRN PRN Reason: Dry Skin Miscellaneous Medication (Pharmacy To Dose) 1 each IVPB ONE PRN PRN Reason: Pharmacy to dose Stop: 02/10/18 06:13 Ondansetron HCl (Zofran Odt) 4 mg PO Q6H PRN PRN Reason: Nausea/Vomiting Ondansetron HCl (Zofran) 4 mg IVP Q6H PRN PRN Reason: Nausea/Vomiting Phenol (Chloraseptic [place] 180 Ml Bot) 0 ml PO PRN PRN PRN Reason: Sore Throat Saccharomyces Boulardii (Florastor) 250 mg PO DAILY [facility] Last Admin: 02/01/18 09:39 Dose: 250 mg Senna (Senokot) 2 tab PO HSPRN PRN PRN Reason: Constipation Sodium Chloride ([place] Nasal [place] 0.65%) 0 ml EA NARE QIDPRN PRN PRN Reason: Nasal Congestion Sodium Chloride (Flush - Normal Saline) 10 ml IVF Q12HR [place] Sodium Chloride (Flush - Normal Saline) 10 ml IVF PRN PRN PRN Reason: Saline Flush Zolpidem Tartrate (Ambien) 5 mg PO HSPRN PRN PRN Reason: Insomnia Last Admin: 02/01/18 00:53 Dose: 5 mg
[2018-02-02] MEDS: hydrALAZINE 25 MG TAB PO SCH ×2 (17:28→21:57)
[2018-02-02] MEDS: Vancomycin HCl 750 MG in Sodium Chloride 0.9% 250 ML 250 ML IVPB SCH (17:48)
--- NOTE | 2018-02-02 18:38 | PDOC.CTH ---
Cardiology Progress Note - Subjective She had a code green earlier this morning likely due to low glucose. She has no new complaints. - Objective Vital Signs Pulse Pulse Pulse Pulse Pulse Pulse Resp 02/02/18 17:28 68 02/02/18 14:12 68 15 02/02/18 12:19 56 L 02/02/18 11:08 60 68 60 02/02/18 07:52 56 L 14 02/02/18 07:51 02/02/18 07:33 57 L 57 L Resp Resp BP BP BP BP BP 02/02/18 17:28 152/70 H 02/02/18 14:12 02/02/18 12:19 02/02/18 11:08 155/68 H 174/71 H 02/02/18 07:52 02/02/18 07:51 02/02/18 07:33 16 16 178/81 H 158/71 H BP Pulse Ox Pulse Ox Pulse Ox 02/02/18 17:28 02/02/18 14:12 95 02/02/18 12:19 02/02/18 11:08 162/67 H 02/02/18 07:52 99 02/02/18 07:51 99 02/02/18 07:33 98 96 Weight 105 lb 02/01/18 02/02/18 02/03/18 06:59 06:59 06:59 Intake Total 1708 240 Balance 1708 240 - Physical Examination General/Neuro: alert & oriented x3, NAD Lungs: CTA, unlabored respirations Heart: RRR Abdomen: NT/ND Extremities: other: (no edema.) - Telemetry Telemetry Rhythm: NSR - Labs Result Diagrams: 02/02/18 07:40 02/02/18 07:40 Troponin/CKMB CK-MB (CK-2) 1.4 ng/mL (0-6.6) 02/02/18 07:40 Troponin I 0.065 ng/mL (< 0.028) H 02/02/18 07:40 - Assessment/Plan 1. Non sustained SVT 2. Acute on chronic diastolic heart failure, improved. 3. Possible pneumonia 4. Dementia 5. HTN 6. Hypokalemia PLAN: - No more IV laisx only PO PRN for now. - Replace K - Low dose BB for her non sustained SVT - Reasonable BP control. Continue current meds. - May discharge back to [place] any time from cardiac perspective.
[2018-02-02] MEDS ORDERED: Insulin Detemir 100 UNITS/ML 5 UNITS in Pre-Filled Syringe 1 EACH SC SCH (21:00)
[2018-02-02] MEDS: Amoxicillin/Potassium Clav 875 MG TAB PO SCH (21:56)
[2018-02-02] MEDS: Lisinopril 5 MG TAB PO SCH (21:56)
[2018-02-03 05:01] LABS: Anion Gap 8 mmol/L (10-20); BUN (Urea Nitrogen) 17 mg/dL (9.8-20.1); Calc. Creatinine Clearance 43 mL/min (70-130); Calcium 8.7 mg/dL (7.8-10.44); Carbon Dioxide 35 mmol/L (23-31); Chloride 100 mmol/L (98-107); Estimated GFR-MDRD 74; Glucose 216 mg/dL (83-110); Potassium 3.2 mmol/L (3.5-5.1); Sodium 140 mmol/L (136-145)
[2018-02-03] MEDS: Amoxicillin/Potassium Clav 875 MG TAB PO SCH (09:39)
[2018-02-03] MEDS: Saccharomyces boulardii 250 MG CAP PO SCH (09:39)
[2018-02-03] MEDS: hydrALAZINE 25 MG TAB PO SCH ×2 (09:40→12:51)
[2018-02-03] MEDS: Metoprolol Tartrate 25 MG TAB PO SCH (09:40)
[2018-02-03] MEDS: Famotidine 20 MG TAB PO SCH (09:40)
[2018-02-03] MEDS: Lisinopril 5 MG TAB PO SCH (09:41)
[2018-02-03] MEDS: guaiFENesin ER 600 MG TAB PO SCH (09:41)
[2018-02-03] MEDS: Enoxaparin Sodium 40 MG/0.4 ML SYRINGE SC SCH (09:41)
[2018-02-03] MEDS: Dextrose 5 % And 0.9 % NaCl 1,000 ML IV SCH (09:42)
--- NOTE | 2018-02-03 11:30 | PDOC.PN ---
- Subjective Encounter Start Date: 02/03/18 Encounter Start Time: 11:27 Ms. Mace was seen today in follow-up. She is awake and alert, and does not have any complaints. - Objective Resuscitation Status: Resuscitation Status DNR:Do Not Resuscitate MAR Reviewed: Yes Vital Signs & Weight: Vital Signs (12 hours) Temp Pulse Resp BP BP Pulse Ox 02/03/18 09:41 70 181/81 H 02/03/18 09:40 70 181/81 H 02/03/18 08:00 96.5 F L 70 18 181/81 H 93 L 02/03/18 06:21 66 18 96 02/03/18 04:00 97.7 F 69 20 161/70 H 98 02/03/18 00:36 61 22 H 94 L 02/03/18 00:00 97.6 F 68 16 176/64 H 94 L Weight Weight 105 lb I&O: 02/02/18 02/03/18 02/04/18 06:59 06:59 06:59 Intake Total 240 120 Balance 240 120 Result Diagrams: 02/02/18 07:40 02/03/18 04:15 Additional Labs: Accuchecks 02/03/18 02/03/18 02/03/18 05:09 03:36 00:04 POC Glucose 176 H 270 H 335 H 02/02/18 02/02/18 02/02/18 20:33 18:33 16:25 POC Glucose 274 H 279 H 157 H 02/02/18 02/02/18 02/02/18 15:28 14:15 13:02 POC Glucose 142 H 137 H 123 H 02/02/18 02/02/18 12:31 08:44 POC Glucose 104 132 H Phys Exam - Physical Examination HEENT: PERRLA, sclera anicteric, oral pharynx no lesions Respiratory: no rales + bilateral wheezing and rhonchi Cardiovascular: RRR, no significant murmur, no rub Gastrointestinal: soft, non-tender, no distention, positive bowel sounds Musculoskeletal: no edema Dx/Plan (1) Hypokalemia Code(s): E87.6 - HYPOKALEMIA Status: Acute (2) Acute exacerbation of CHF (congestive heart failure) Code(s): I50.9 - HEART FAILURE, UNSPECIFIED Status: Acute Qualifiers: Heart failure type: diastolic Qualified Code(s): I50.33 - Acute on chronic diastolic (congestive) heart failure Comment: ef of 55%, diastolic dysfunction (3) PNA (pneumonia) Code(s): J18.9 - PNEUMONIA, UNSPECIFIED ORGANISM Status: Acute Qualifiers: Pneumonia type: due to unspecified organism Laterality: bilateral Lung location: lower lobe of lung Qualified Code(s): J18.1 - Lobar pneumonia, unspecified organism (4) DM type 2 (diabetes mellitus, type 2) Status: Chronic Qualifiers: Diabetes mellitus jail insulin use: with vermin exterminator use Diabetes mellitus complication status: with unspecified complications Qualified Code(s) : E11.8 - Type 2 diabetes mellitus with unspecified complications; Z79.4 - longterm (current) use of insulin; Z79.4 - exterminator termite (current) use of insulin; Z79.4 - longterm (current) use of insulin; Z79.4 - longterm (current) use of insulin (5) Dementia Code(s): F03.90 - UNSPECIFIED DEMENTIA WITHOUT BEHAVIORAL DISTURBANCE Status: Chronic Qualifiers: Dementia type: unspecified type Dementia behavioral disturbance: without behavioral disturbance Qualified Code(s): F03.90 - Unspecified dementia without behavioral disturbance (6) Moderate protein-calorie malnutrition Code(s): E44.0 - MODERATE PROTEIN-CALORIE MALNUTRITION Status: Chronic (7) Hypertension Code(s): I10 - ESSENTIAL (PRIMARY) HYPERTENSION Status: Chronic - Plan * Acute on chronic CHF with preserved systolic function- compensated, and Lasix will be given PRN * HTN- blood pressure is elevated- * DM- blood glucose is stable * Hypokalemia- replace potassium. * Pneumonia- ? Aspiration vs. HAP- continue Augmentin * She has been cleared for discharge by Cardiology * Back to the [place] today
--- NOTE | 2018-02-03 12:09 | DIS ---
DATE OF ADMISSION: 01/31/2018 DATE OF DISCHARGE: 02/03/2018 PRIMARY CARE PHYSICIAN: Sajan Cruz M.D. DISCHARGE DISPOSITION: Back to the [facility]. DISCHARGE DIAGNOSES: 1. Acute on chronic respiratory failure secondary to healthcare associated pneumonia as well as water resource manager reilly diastolic heart failure. 2. Diabetes mellitus, type 2. 3. History of nonsustained ventricular tachycardia. 4. Dementia. 5. Hypertension. DISCHARGE MEDICATIONS: Please note that the patient's lisinopril was increased to 10 mg twice a day. She is to continue and she was also started on Lopressor 12.5 mg twice daily, Augmentin 875 mg twic e a day for 5 more days and Lasix 20 mg daily only as needed for volume overload and edema. She is t o continue MiraLax 17 grams daily, Senokot 2 tablets as needed, docusate sodium 1 tablet at bedtime, vitamin D3 1000 units daily, Dulcolax 5 mg daily, Lipitor 20 mg at bedtime, and aspirin 81 mg a day. PROCEDURES DONE DURING ADMISSION: The patient had an echocardiogram in which the ejection fraction w as estimated at 55%-60%. There was grade 1/3 diastolic dysfunction. She had some flattening of the left ventricle in diastole and biatrial enlargement. The patient also had a CT scan of the brain in which there was some atrophy and chronic white matter ischemic change, but there was no mass or bleed intracranially. CODE STATUS: DNR. ALLERGIES: No known drug allergies. HOSPITAL COURSE: Ms. Mace is a very pleasant 82-year-old female who was sent from the [facility] to respiratory distress. She was hypoxic with O2 saturations and approximately 85% on room air. S he was wheezing and had rales and wheezing throughout both lung anaya. She was evaluated in the ER and x-ray findings showed bilateral infiltrates which were worse on the right than left. She was livia ated for healthcare-acquired pneumonia since she resides in a [facility] and there was also some de gree of volume overload as well. She was placed on IV Lasix for this. An echocardiogram was obtaine d. She has preserved ejection fraction with an EF of 55%-60%. There was some question of a possible extracardiac mass. For this reason, Cardiology was consulted and it was felt that this likely repre sented difficulty with performing the echo due to the patient being in acute heart failure and it was difficult to determine whether or not there was truly a mass there or whether this was an effect of the heart failure effect and if necessary, this would have to be repeated once the patient was euvole norman. The patient's hospital course was complicated by an episode of unresponsiveness. This was thou ght to be due to her blood glucose level and it resolved and she was back at her baseline at the time of discharge sitting up, talking and appeared to be in no distress; however, her oxygen saturation s he still required nasal cannula to keep them in the 90s. It is also noted that her blood pressure wa s elevated and her lisinopril dose was increased and she was also started on low dose metoprolol due to the concern for SVT and was subsequently discharged back to the [facility].
[2018-02-03 12:29] VITALS: TEMP 97.2
[2018-02-03 12:52] VITALS: BP 168/84
--- NOTE | 2018-02-07 08:43 | EKG ---
Test Reason : CODE GREEN Blood Pressure : / mmHG Vent. Rate : 057 BPM Atrial Rate : 057 BPM P-R Int : 150 ms QRS Dur : 114 ms QT Int : 460 ms P-R-T Axes : 030 -48 -45 degrees QTc Int : 447 ms Sinus bradycardia Left anterior fascicular block Left ventricular hypertrophy with repolarization abnormality Abnormal ECG Confirmed by TOBI ROSE MD ([id number]) on 02/07/2018 8:43:14 AM Referred By: PATSY Confirmed By:TOBI ROSE MD
== END 2018-02-03 13:55 | DRG 189 ==
LOC: ERS 01:42 → 2NO 04:00
PROVIDERS: ADMIT Internal Medicine; ATTEND Internal Medicine
DX: J96.01 Acute respiratory failure with hypoxia (principal); J18.9 Pneumonia, unspecified organism; I50.33 Acute on chronic diastolic (congestive) heart failure; E44.0 Moderate protein-calorie malnutrition; I24.8 Other forms of acute ischemic heart disease; I11.0 Hypertensive heart disease with heart failure; D64.9 Anemia, unspecified; I47.1 Supraventricular tachycardia; R13.12 Dysphagia, oropharyngeal phase; Z68.1 Body mass index [BMI] 19.9 or less, adult; E11.9 Type 2 diabetes mellitus without complications; G30.1 Alzheimer's disease with late onset; F02.80 Dementia in other diseases classified elsewhere, unspecified severity, without behavioral disturbance, psychotic disturbance, mood disturbance, and anxiety; Y95 Nosocomial condition; Z79.82 Long term (current) use of aspirin; Z79.899 Other long term (current) drug therapy; Z66 Do not resuscitate; M19.90 Unspecified osteoarthritis, unspecified site; M81.0 Age-related osteoporosis without current pathological fracture; Z79.4 Long term (current) use of insulin; E87.6 Hypokalemia; Z79.51 Long term (current) use of inhaled steroids
CPT/HCPCS: 36415; 36416; 70450; 71045; 80048; 80053; 80202; 81001; 82553; 83605; 83880; 84484; 85025; 85610; 85730; 87040; 93005; 93010; 93306; 94640; 94760; 96365; A4216; G8978-GP-CN; G8979-GP-CK; G8987-GO-CM; G8988-GO-CL; G8996-GN-CL; G8997-GN-CJ; J0360; J1650; J1815; J1940; J2543; J3370; J7050; J7620